=== PATIENT | female | born 1955 | race Caucasian/White ===

== ENCOUNTER 2022-10-28 18:26 | Outpatient (CLI) | payer MEDICARE, SELFPAY | END 2022-10-28 18:27 | disposition home or self-care (01) | LOC: AMB 11-07 18:51 | PROVIDERS: Visit Provider Family Medicine | DX: R06.02 Shortness of breath (principal); J18.9 Pneumonia, unspecified organism; R53.1 Weakness | CPT/HCPCS: A0425; A0427 ==